=== PATIENT | male | born 1950 | race Caucasian/White ===

== ENCOUNTER 2017-07-10 09:23 | Day surgery (SDC) | payer OTHER ==
[~2017-07-10 09:23] MED LIST: HUMALOG MIX 75/23 M1 SQ; HYZAAR 100-121 UDTAB PO; IMODIUM A-D2 M2 PO; INTESTINEX1 CA1 PO; INTESTINEX680 MG PO; LEVEMIR100 U/M1 SC; OMEPRAZOLE20 MG PO; OXYC1TAB9 PO; PERCOCET 5/3251 TAB PO; TAMS0.4C PO; ULTRACET PO; [UNRECOGNIZED DRUG - OTHER]; [UNRECOGNIZED DRUG - OTHER] PO; [UNRECOGNIZED DRUG - OTHER] PO
== END 2017-07-10 14:00 | disposition home or self-care (01) ==
LOC: AMB-ENDOS 09:23
DX: C18.6 Malignant neoplasm of descending colon (principal); Z93.2 Ileostomy status; Z85.048 Personal history of other malignant neoplasm of rectum, rectosigmoid junction, and anus

== ENCOUNTER 2017-09-28 11:00 | Day surgery (SDC) | payer OTHER | END 2017-09-28 14:50 | disposition home or self-care (01) | LOC: AMB-ENDOS 11:00 | DX: C18.6 Malignant neoplasm of descending colon (principal) ==

== ENCOUNTER 2017-10-26 09:23 | Outpatient (CLI) | payer OTHER | END 2017-10-26 10:58 | disposition home or self-care (01) | LOC: RAD 09:23 | DX: C20 Malignant neoplasm of rectum (principal); K92.1 Melena; K62.4 Stenosis of anus and rectum; Z93.2 Ileostomy status; K43.2 Incisional hernia without obstruction or gangrene; Z01.810 Encounter for preprocedural cardiovascular examination; Z01.812 Encounter for preprocedural laboratory examination ==

== ENCOUNTER 2017-10-30 14:39 | Inpatient (IN) | payer OTHER ==
[~2017-10-30] VITALS: Ht 162.6 cm; Wt 81.6 kg
[2017-11-06] MEDS ORDERED: TYLENOL ARTHRI650 MG PO (16:27)
[2017-11-06] MEDS ORDERED: NEURONTIN300 MG PO (16:27)
== END 2017-11-06 19:17 | disposition home or self-care (01) | DRG 330 ==
LOC: O/R 10-31 06:06 → SURG 10-31 06:06 → SURH 10-31 07:00 → SURG 10-31 13:52 → SURH 10-31 16:01 → SURG 11-06 19:17
PROVIDERS: Surgery; Urology
PROC: 07TC0ZZ Resection of Pelvis Lymphatic, Open Approach (ICD-10-PCS; 2017-10-31)
PROC: 0WUF0JZ Supplement Abdominal Wall with Synthetic Substitute, Open Approach (ICD-10-PCS; 2017-10-31)
PROC: 0TJB8ZZ Inspection of Bladder, Via Natural or Artificial Opening Endoscopic (ICD-10-PCS; 2017-10-31)
PROC: 0DTP0ZZ Resection of Rectum, Open Approach (ICD-10-PCS; principal; 2017-10-31 07:00)
PROC: 0D1N0Z4 Bypass Sigmoid Colon to Cutaneous, Open Approach (ICD-10-PCS; 2017-10-31 07:00)
PROC: 0DTN0ZZ Resection of Sigmoid Colon, Open Approach (ICD-10-PCS; 2017-10-31 07:00)
DX: C20 Malignant neoplasm of rectum (principal); C78.4 Secondary malignant neoplasm of small intestine; C78.6 Secondary malignant neoplasm of retroperitoneum and peritoneum; N17.8 Other acute kidney failure; D36.0 Benign neoplasm of lymph nodes; K43.9 Ventral hernia without obstruction or gangrene; N40.0 Benign prostatic hyperplasia without lower urinary tract symptoms; E11.9 Type 2 diabetes mellitus without complications; N18.9 Chronic kidney disease, unspecified; I12.9 Hypertensive chronic kidney disease with stage 1 through stage 4 chronic kidney disease, or unspecified chronic kidney disease